=== PATIENT | male | born 1975 | race Caucasian/White ===

== ENCOUNTER 2018-06-11 06:23 | Day surgery (SDC) | payer OTHER ==
[2018-06-11] MEDS ORDERED: PROPOFOL 20 ML ×2 (07:25→07:26)
[2018-06-11] MEDS ORDERED: LIDOCAINE 2% (SDV) 5 ML INJ (07:26)
[2018-06-11] MEDS ORDERED: MIDAZOLAM 1 MG/ML 2 ML INJ (07:26)
[2018-06-11] MEDS ORDERED: PHENYLephrine (100 MCG/ML) 5ML SYG (07:31)
== END 2018-06-11 10:01 | disposition home or self-care (01) ==
LOC: GIL 06:23
DX: R19.4 Change in bowel habit (principal); K57.90 Diverticulosis of intestine, part unspecified, without perforation or abscess without bleeding; K64.8 Other hemorrhoids
CPT/HCPCS: 45378